=== PATIENT | female | born 2000 | race Caucasian/White ===

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

== ENCOUNTER 2022-01-19 13:07 | Emergency (ER) | payer BC, SELFPAY ==
[2022-01-19 13:11] VITALS: BP 128/65; PULSE 89; RESP 16; TEMP 37.1; O2SAT 99
--- NOTE | 2022-01-19 13:27 | W.ED.GENAD ---
Discharge Plan Disposition Patient Disposition: HOME Condition: Stable Discharge Details Clinical Impression: Hydronephrosis Primary Care Provider: Ariadne Stevenson ED Provider: Matthieu Zuniga Home Meds and New Rx's Prescriptions: New tamsulosin [Flomax] 0.4 mg capsule 0.4 mg PO DAILY Qty: 5 0RF Continued melatonin 3 mg capsule 3 mg PO HS PRN acetylcysteine [NAC] 600 mg capsule 600 mg PO DAILY citalopram 20 mg tablet 20 mg PO DAILY loratadine [Claritin] 10 mg tablet 10 mg PO DAILY PRN Discharge Instructions Instructions: Hydronephrosis (ED) Additional Instructions: Your laboratory values and urinalysis did not reveal any obvious emergent process but your ultrasound reveals a worsening hydronephrosis when compared to your last ultrasound. Flomax as directed. [id number] Tylenol and/or Motrin as directed for discomfort. Plenty of fluids to avoid dehydration. Please watch for new or worsening symptoms and return to the ER for any concerns. Otherwise please contact our urology team, Dr. Olson, or your urology team at [facility] on Saturday to discuss your ER visit, need for outpatient reevaluation, and likely studies sooner than February as already scheduled Referrals: Deangelo Olson MD [ [facility] STAFF PHYSICIAN] - Discharge Data Discharge Date/Time-TO BE ENTERED AT DEPARTURE: 01/19/22 16:33 Medical Decision Making This is a 21-year-old female who reports hematuria and right flank pain intermittent for the last couple of days, more constant since this morning. She reports mild chills but denies fever. Denies nausea, vomiting, vaginal bleeding or discharge. She reports a history of hydronephrosis, concern for right-sided stone, has been followed at [facility] for urology. Scheduled for a renogram in February. Clinically she appears well, nontoxic, afebrile, abdomen, soft, nonsurgical, no CVA tenderness. Plan is to obtain IV access, obtain routine screening laboratory values as well as a urinalysis and ultrasound. Laboratory values reveal large blood in her urine, greater than 50 red cells but no signs of infection. Ultrasound reveals worsening hydronephrosis when compared to previous. Case discussed with Dr. Olson, urology. He recommends treating as presumptive stone, ultrasound may miss a more inferior sitting stone. He believes the patient can be safely discharged however if she continues to have symptoms then she may need further evaluation, CT imaging, stent, etc. Plan is to provide Flomax and Toradol. He will be happy to see her in his office next week and strict precautions were given to return over the weekend. She is undecided whether she will continue to travel to [facility] or she will be seen more closely here, either way will contact urology Saturday after the holiday . Patient given p.o. Flomax and IM Toradol. Did have a brief vasovagal episode with the IM Toradol. Patient reports this is a very common reaction that she has had multiple times in the past with needles. She returned to her baseline mental status, ambulate steadily, tolerated p.o. intake. Stict discharge and return precautions were provided. Patient understands, is agreeable to this plan, and has no additional questions or concerns upon discharge. This documentation was generated using [employer] dictation system, please disregard any oddities of phrase or misspellings. Medical Records Medical records reviewed: Yes I reviewed the patient's medical records. Imaging Data Radiologic Study: Attestation: I personally reviewed and interpreted this imaging study as follows: Imaging: Ultrasound Radiologist's impression: Exam(s) US RENAL EXAM: US RENAL CLINICAL HISTORY: R flank pain, hematuria, hx of stone. TECHNIQUE: Chowdhury scale, color and spectral Doppler were used. COMPARISON: CT CT RENAL COLIC WO from 04/02/2020 US US PELVIS TRANSVAGINAL from 01/11/2021 FINDINGS: Renal size in cm: Right: 12.4 left: 10.8 Echogenicity: Normal Hydronephrosis: Moderate to severe right hydronephrosis which appears increased from the previous exam. Cyst or mass: No Nephrolithiasis: No Bladder:Normal . Right ureteral jet was visualized. Left ureteral jet was not seen. Prevoid vol:29 cc Postvoid vol:0 cc IMPRESSION: Moderate to severe at hydronephrosis which appears have increased when compared with 2019 and 2020 exams. Lab Data Lab results reviewed: Yes I reviewed the patient's lab results. Labs: 01/19/22 13:15 Urine - Reflex from Ua Urine Culture - Pending Laboratory Tests Range/Units 01/19/22 01/19/22 01/19/22 13:15 14:14 14:14 WBC (4.4-10.8) 10^3/uL 8.07 RBC (3.93-5.22) 10^6/uL 4.28 Hgb (11.2-15.7) g/dL 13.7 Hct (36.0-46.0) % 41.9 MCV (80-95) fL 98 H MCH (27.0-33.0) pg 32.0 MCHC (32.0-36.0) % 32.7 RDW (11.7-14.6) % 11.9 Plt Count (130-400) 10^3/uL 183 MPV (8.0-11.0) fL 9.8 Immature Gran % 0.2 Neutrophils % 82.8 Lymphocytes % 9.9 Monocytes % 6.7 Eosinophils % 0.2 Basophils % 0.2 Nucleated RBC % (0.0-0.3) % 0.0 Absolute Neutrophils (1.2-6.7) 10^3/uL 6.67 Absolute Lymphocytes (1.2-3.4) 10^3/uL 0.80 L Absolute Monocytes (0.1-0.8) 10^3/uL 0.54 Absolute Eosinophils (0.0-0.7) 10^3/uL 0.02 Absolute Basophils (0.0-0.2) 10^3/uL 0.02 Sodium (136-145) mmol/L 139 Potassium (3.5-5.1) mmol/L 3.5 Chloride (98-107) mmol/L 103 Carbon Dioxide (21.0-32.0) mmol/L 28.9 Anion Gap (3-11) mmol/L 7.1 BUN (7-18) mg/dL 10 Creatinine (0.55-1.02) mg/dL 0.7 Estimated GFR/1.73 m2 (mL/min/1.73m2) >= 60.00 Glucose (74-106) mg/dL 96 Calcium (8.5-10.1) mg/dL 9.4 Total Bilirubin (0.2-1.0) mg/dL 0.5 AST (15-37) U/L 35 ALT (14-59) U/L 41 Alkaline Phosphatase (46-116) U/L 84 Total Protein (6.4-8.2) g/dL 8.2 Albumin (3.4-5.0) g/dL 4.6 Lipase (73-393) U/L 82 Urine Color (Yellow) Yellow Urine Clarity (Clear) Cloudy Urine pH (5-8) 7.5 Ur Specific [place] (1.005-1.025) 1.025 Urine Protein (Negative) mg/dL 100 H Urine Ketones (Negative) mg/dL Negative Urine Blood (Negative) Large H Urine Nitrite (Negative) Negative Urine Bilirubin (Negative) Negative Urine Urobilinogen (Up TO 0.2) EU/dL 1.0 H Ur Leukocyte Esterase (Negative) Trace H Urine RBC (0-2) HPF >50 H Urine WBC (0-5) HPF 3-5 Ur Epithelial Cells (Negative) HPF Few Urine Crystals (Negative) HPF Negative Urine Bacteria (Negative) HPF Rare Urine Casts (Negative) LPF 3-5 Hyaline Urine Mucus (Negative) Negative Ur Culture Indicated? Yes Urine Glucose (Negative) mg/dL Negative HPI General Mode of arrival: ambulatory. Date/Time Provider Initiated Documentation: 01/19/22 13:08. Limitations to Documentation: no limitations. Information obtained by: patient. History of Present Illness 21 year old F presents to the emergency department with the chief complaint of Hematuria, right flank pain, described as moderate, with intensity rated at 5. Quality is described as aching, and is localized to the abdomen and right. Patient reports no radiation. Patient started experiencing this day(s) (2) and it has been intermittent. No relieving factors improve symptom(s), No exacerbating factors reported . Patient notes no other symptoms.. Patient did receive the following treatments prior to arrival, none Related Data Home Medications Medication Instructions Recorded Confirmed acetylcysteine 600 mg capsule (NAC) 600 mg PO DAILY 09/06/21 10/18/21 loratadine 10 mg tablet (Claritin) 10 mg PO DAILY PRN 09/06/21 10/18/21 melatonin 3 mg capsule 3 mg PO HS PRN 09/06/21 10/18/21 citalopram 20 mg tablet 20 mg PO DAILY 09/27/21 10/18/21 tamsulosin 0.4 mg capsule (Flomax) 0.4 mg PO DAILY #5 caps 01/19/22 Previous Rx's Medication Instructions Recorded tamsulosin 0.4 mg capsule (Flomax) 0.4 mg PO DAILY #5 caps 01/19/22 Allergies Allergy/AdvReac Type Severity Reaction Status Date / Time No Known Allergies Allergy Unverified 10/18/21 10:09 General Stated Complaint: Urinary MIKE: 3 Review of Systems Constitutional Constitutional: Denies fever(s) and Denies weakness Cardiovascular Cardiovascular: Denies chest pain and Denies dyspnea Respiratory Respiratory: Denies cough and Denies dyspnea Gastrointestinal Gastrointestinal: Reports abdominal pain (R flank), Denies diarrhea, Denies nausea and Denies vomiting Genitourinary Genitourinary: Denies abnormal vaginal bleeding, Reports hematuria, Denies dysuria and Denies vaginal discharge Musculoskeletal Musculoskeletal: Denies back pain Integumentary/Breasts Skin/Breast: Denies rash Neurologic Neurologic: Denies weakness Hematologic/Lymphatic Hematologic/Lymphatic: Denies easy bleeding and Denies easy bruising PFSH All Active Problems (Updated 01/19/22 @ 16:03 by CAPO Miller) Hydronephrosis (Acute) Patellar tendinitis of left knee (Acute) Medical History Adjustment disorder with anxious mood Anxiety and depression Congenital hip dysplasia Depression Irregular menstrual cycle IUD (intrauterine device) in place Left knee pain Surgical History History of arthroplasty of left hip Social History Smoking/Tobacco Use Status: Never Smoking risk assessment performed?: Yes Alcohol Intake: never Drug use: Never Substance use type: does not use Current gender identity: female Do you feel safe at home: Yes Do you feel safe in your relationship?: Yes Exam Const General: cooperative, healthy appearing, comfortable and no acute distress Orientation: alert, awake and oriented x3 HENMT Head: normal to inspection, normocephalic and atraumatic Mouth: moist mucous membranes Eyes General: appearance normal, both eyes and all related structures Conjunctivae: conjunctivae normal Neck Neck: normal visual inspection, full ROM, trachea midline and supple Resp Effort & Inspection: normal respiratory effort and able to speak in complete sentences Auscultation: clear to auscultation bilaterally Cardio Rate: regular rate Rhythm: regular rhythm GI Inspection: normal to inspection Palpation: soft, not firm, no guarding, no pulsatile masses and tender (Mild R flank) with no rebound tenderness Auscultation: normal bowel sounds Back/Spine/Pelvis Back: No no CVA tenderness and No back tenderness Skin General skin exam: no rashes or lesions noted Neuro General: patient alert, patient awake, moves all extremities and no focal motor deficits Sensory Exam: no sensory deficits noted Psych Appearance: grossly normal Mental Status: mental status grossly normal Course Vital Signs Vital signs: Vital Signs Temperature 37.1 C 01/19/22 13:11 Pulse 89 01/19/22 13:11 Respiratory Rate 16 01/19/22 13:11 Blood Pressure 128/65 01/19/22 13:11 Pulse Oximetry 99 01/19/22 13:11 Temperature 37.1 C 01/19/22 13:11 Temperature Source Oral 01/19/22 13:11 Pulse 89 01/19/22 13:11 Respiratory Rate 16 01/19/22 13:11 Blood Pressure 128/65 01/19/22 13:11 Blood Pressure Position Sitting 01/19/22 13:11 Pulse Oximetry 99 01/19/22 13:11 Oxygen Delivery Method Room Air 01/19/22 13:11 Oxygen Flow Rate 0 01/19/22 13:11 Pain Level 6 01/19/22 13:11 Lab/Test Results Lab/Test Results: POC- Test(urine) Negative
[2022-01-19 13:28] LABS: Bilirubin Negative (Negative); Blood Large (Negative); Clarity Cloudy (Clear); Glucose Negative (Negative); Ketones Negative (Negative); Leukocyte Esterase Trace (Negative); Nitrite Negative (Negative); Specific Gravity 1.025 (1.005-1.025); pH 7.5 (5-8)
[2022-01-19 13:34] LABS: Bacteria Rare HPF (Negative); C & S Indicated? Yes; Casts 3-5 Hyaline LPF (Negative); Crystals Negative HPF (Negative); Epithelial Cells Few HPF (Negative); Mucus Negative (Negative); RBC >50 HPF (0-2)
--- NOTE | 2022-01-19 13:45 | DI.US_ITS ---
Exam(s) US RENAL EXAM: US RENAL CLINICAL HISTORY: R flank pain, hematuria, hx of stone. TECHNIQUE: Chowdhury scale, color and spectral Doppler were used. COMPARISON: CT CT RENAL COLIC WO from 04/02/2020 US US PELVIS TRANSVAGINAL from 01/11/2021 FINDINGS: Renal size in cm: Right: 12.4 left: 10.8 Echogenicity: Normal Hydronephrosis: Moderate to severe right hydronephrosis which appears increased from the previous exa m. Cyst or mass: No Nephrolithiasis: No Bladder:Normal . Right ureteral jet was visualized. Left ureteral jet was not seen. Prevoid vol:29 cc Postvoid vol:0 cc IMPRESSION: Moderate to severe at hydronephrosis which appears have increased when compared with 2019 and 2020 ex ams. DATA REPOSITORY:
[2022-01-19 14:19] LABS: Abs Immature Grans 0.02 10^3/uL (0.0-0.06); Absolute Basophil Count 0.02 10^3/uL (0.0-0.2); Absolute Eosinophil Count 0.02 10^3/uL (0.0-0.7); Absolute Monocyte Count 0.54 10^3/uL (0.1-0.8); Absolute Neutrophil Count 6.67 10^3/uL (1.2-6.7); Basophils % 0.2; Eosinophils % 0.2; HCT 41.9 % (36.0-46.0); HGB 13.7 g/dL (11.2-15.7); Immature Grans % 0.2; Lymphocytes % 9.9; MCHC 32.7 % (32.0-36.0); MCV 98 fL (80-95); MPV 9.8 fL (8.0-11.0); Monocytes % 6.7; Neutrophils % 82.8; Platelet Count 183 10^3/uL (130-400); RBC 4.28 10^6/uL (3.93-5.22); RDW 11.9 % (11.7-14.6); RDW-SD 42.9 fL; WBC 8.07 10^3/uL (4.4-10.8)
[2022-01-19 14:39] LABS: ALT 41 U/L (14-59); AST 35 U/L (15-37); Albumin 4.6 g/dL (3.4-5.0); Alkaline Phosphatase 84 U/L (46-116); Anion Gap 7.1 mmol/L (3-11); BUN 10 mg/dL (7-18); Bilirubin, Total 0.5 mg/dL (0.2-1.0); CO2 28.9 mmol/L (21.0-32.0); CREATININE 0.7 mg/dL (0.55-1.02); Calcium 9.4 mg/dL (8.5-10.1); Chloride 103 mmol/L (98-107); Glucose 96 mg/dL (74-106); Lipase 82 U/L (73-393); Potassium 3.5 mmol/L (3.5-5.1); Sodium 139 mmol/L (136-145); Total Protein 8.2 g/dL (6.4-8.2)
[2022-01-19] MEDS: Tamsulosin 0.4 MG CAPCR PO (16:30)
[2022-01-19] MEDS: Ketorolac 30 MG/ML VIAL IM (16:30)
== END 2022-01-19 16:33 | disposition home or self-care (01) ==
PROVIDERS: Emergency Provider Physician Assistant; PCP Family Medicine
DX: N13.30 Unspecified hydronephrosis (principal); R10.9 Unspecified abdominal pain; R31.9 Hematuria, unspecified
CPT/HCPCS: 36416; 76770; 80053; 81025; 82962; 83690; 96372; 99284; 81003; 81015; 85025; 87086; J1885

== ENCOUNTER 2022-06-29 15:08 | Outpatient (CLI) | payer BC, SELFPAY ==
[2022-06-29 15:28] LABS: HCT 40.9 % (36.0-46.0); HGB 13.5 g/dL (11.2-15.7); MCH 32.1 pg (27.0-33.0); MCV 97 fL (80-95); MPV 10.5 fL (8.0-11.0); Platelet Count 188 10^3/uL (130-400); RBC 4.21 10^6/uL (3.93-5.22); RDW 11.7 % (11.7-14.6); RDW-SD 42.1 fL; WBC 6.35 10^3/uL (4.4-10.8)
[2022-06-29 16:07] LABS: ALT 20 U/L (14-59); AST 23 U/L (15-37); Albumin 4.5 g/dL (3.4-5.0); Alkaline Phosphatase 62 U/L (46-116); Anion Gap 8.4 mmol/L (3-11); BUN 11 mg/dL (7-18); Bilirubin, Total 0.6 mg/dL (0.2-1.0); CO2 28.6 mmol/L (21.0-32.0); CREATININE 0.8 mg/dL (0.55-1.02); Calcium 9.6 mg/dL (8.5-10.1); Chloride 103 mmol/L (98-107); Estimated GFR 108.11 (mL/min/1.73m2); Glucose 87 mg/dL (74-106); Potassium 3.9 mmol/L (3.5-5.1); Sodium 140 mmol/L (136-145); Total Protein 7.8 g/dL (6.4-8.2)
== END 2022-06-29 15:09 | disposition home or self-care (01) ==
LOC: LBO 15:09
PROVIDERS: PCP Family Medicine; Visit Provider Urology
DX: N13.5 Crossing vessel and stricture of ureter without hydronephrosis (principal); Z01.818 Encounter for other preprocedural examination
CPT/HCPCS: 36415; 80053; 85027; 86900; 86901; 87086

== ENCOUNTER 2022-12-05 13:32 | Emergency (ER) | payer BC, SELFPAY ==
[2022-12-05 13:37] VITALS: BP 114/73; PULSE 97; RESP 16; TEMP 37.1; O2SAT 99
--- NOTE | 2022-12-05 13:45 | DI.US_ITS ---
Exam(s) US RENAL EXAM: US RENAL CLINICAL HISTORY: right flank pain, recent surgery TECHNIQUE: Ultrasound of both kidneys performed using standard protocol. COMPARISON: US US RENAL from 01/19/2022 FINDINGS: RIGHT KIDNEY: Measures 12.4 cm in length. No cysts evident. Normal cortical thickness and corticomedullary differen tiation .No solid masses Presently there is no hydronephrosis on the right side, as was previously present. There is apparent ly been interval UPJ obstruction repair procedure. LEFT KIDNEY: Measures 11.5 cm in length. No cysts evident. Normal cortical thickness and corticomedullary differe ntiaion. No solids masses. No intrarenal calculi nor hydonephrosis. URINARY BLADDER: Volume of fluid in the urinary bladder is only 12.2 cc therefore difficult to assess for masses and t o assess the ureteral jets. A week jet was demonstrated on the left side. No obvious jet demonstrat ed on the right side. No evidence of bladder mass nor diverticuli. IMPRESSION: 1. Previously present right-sided hydronephrosis is no longer seen. There has apparently been inter omkar right UPJ obstruction repair since the most recent ultrasound examination of December 2021. No thinni ng of the cortical mantle in either kidney. No new cysts nor masses in either kidney. No perinephri c fluid. 2. Bladder was difficult to assess because it was almost empty (only 12.2 cc). Therefore it was not possible to adequately evaluate for the presence of a right ureterovesical jet. DATA REPOSITORY:
[2022-12-05 13:53] LABS: Bilirubin Negative (Negative); Blood Trace-lysed (Negative); Clarity Clear (Clear); Glucose Negative (Negative); Ketones Trace mg/dL (Negative); Leukocyte Esterase Trace (Negative); Nitrite Negative (Negative); Specific Gravity 1.015 (1.005-1.025); Urobilinogen 0.2 mg/dL (Up to 0.2); pH 6.5 (5-8)
[2022-12-05 14:03] LABS: Bacteria Rare HPF (Negative); C & S Indicated? No/Sq. Contamination; Casts Negative LPF (Negative); Crystals Negative HPF (Negative); Epithelial Cells Moderate HPF (Negative); Mucus Negative (Negative); RBC 0-2 HPF (0-2); WBC 0-2 HPF (0-5)
[2022-12-05 14:49] LABS: Abs Immature Grans 0.01 10^3/uL (0.0-0.06); Absolute Basophil Count 0.01 10^3/uL (0.0-0.2); Absolute Lymphocyte Count 0.67 10^3/uL (1.2-3.4); Absolute Neutrophil Count 4.82 10^3/uL (1.2-6.7); Basophils % 0.2; HCT 39.5 % (36.0-46.0); HGB 13.4 g/dL (11.2-15.7); Immature Grans % 0.2; Lymphocytes % 10.8; MCH 31.7 pg (27.0-33.0); MCHC 33.9 % (32.0-36.0); MCV 93 fL (80-95); MPV 9.8 fL (8.0-11.0); Monocytes % 11.3; Neutrophils % 77.5; Platelet Count 166 10^3/uL (130-400); RBC 4.23 10^6/uL (3.93-5.22); RDW 12.5 % (11.7-14.6); RDW-SD 43.2 fL; WBC 6.21 10^3/uL (4.4-10.8)
[2022-12-05 15:07] LABS: ALT 20 U/L (14-59); AST 24 U/L (15-37); Albumin 4.2 g/dL (3.4-5.0); Alkaline Phosphatase 75 U/L (46-116); Anion Gap 8.6 mmol/L (3-11); BUN 9 mg/dL (7-18); Bilirubin, Total 0.5 mg/dL (0.2-1.0); CO2 28.4 mmol/L (21.0-32.0); CREATININE 0.8 mg/dL (0.55-1.02); Calcium 9.1 mg/dL (8.5-10.1); Chloride 100 mmol/L (98-107); Estimated GFR 108.11 (mL/min/1.73m2); Glucose 92 mg/dL (74-106); Lipase 17 U/L (16-77); Potassium 3.6 mmol/L (3.5-5.1); Sodium 137 mmol/L (136-145); Total Protein 8.1 g/dL (6.4-8.2)
--- NOTE | 2022-12-05 15:08 | ED.GENADUL_ITS ---
Discharge Plan Disposition Patient Disposition: Home Discharge Details Clinical Impression: Back pain Primary Care Provider: Ariadne Stevenson ED Provider: Carmen Bell Home Meds and New Rx's Prescriptions: Continued melatonin 3 mg capsule 3 mg PO HS PRN acetylcysteine [NAC] 600 mg capsule 600 mg PO DAILY citalopram 20 mg tablet 20 mg PO DAILY loratadine [Claritin] 10 mg tablet 10 mg PO DAILY PRN tamsulosin [Flomax] 0.4 mg capsule 0.4 mg PO DAILY Qty: 5 0RF Discharge Instructions Instructions: Back Pain (ED) Additional Instructions: Take ibuprofen and Tylenol as needed for pain Follow-up with your primary care physician for reassessment in 2 to 3 days Your tests today are reassuring including your renal ultrasound which does not show acute abnormality and your diagnostic blood work encouraging her uri nalysis, no evidence of infection or obstruction Please return earlier should you have fever, chills, worsening pain, or with any new or worsening complaints Referrals: Ariadne Stevenson MD [Primary Care Provider] - 2 days Discharge Data Discharge Date/Time-TO BE ENTERED AT DEPARTURE: 12/05/22 15:23 Medical Decision Making 22-year-old female with history of ureteral surgery several months ago presents with right flank pain, atraumatic Ultrasound renal does not show evidence of acute abnormality per radiology interpretation and my review Urinalysis is clear, negative test, and the remainder of her labs are all within normal limits She is encouraged to follow-up with her primary care physician in 24 to 48 hours for reassessment Return precautions reviewed and patient expressed understanding She will follow-up with primary care physician and her neurologist in the outpatient setting Medical Records Medical records reviewed: Yes I reviewed the patient's medical records. Lab Data Lab results reviewed: Yes I reviewed the patient's lab results. HPI General Date/Time Provider Initiated Documentation: 12/05/22 13:51 . HPI Narrative: This 22-year-old female presents with report of right flank pain. 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 She actually had a repeat assessment on Saturday that this did a CAT scan within normal limits. She has any fever or chills. She states the pain started while she was walking at [place]. She denies known exacerbating or relieving factors. Denies any urinary complaints or chance of . Related Data Home Medications Medication Instructions Recorded Confirmed acetylcysteine 600 mg capsule (NAC) 600 mg PO DAILY 09/06/21 10/18/21 loratadine 10 mg tablet (Claritin) 10 mg PO DAILY PRN 09/06/21 12/05/22 melatonin 3 mg capsule 3 mg PO HS PRN 09/06/21 12/05/22 citalopram 20 mg tablet 20 mg PO DAILY 09/27/21 10/18/21 tamsulosin 0.4 mg capsule (Flomax) 0.4 mg PO DAILY #5 caps 01/19/22 Previous Rx's Medication Instructions Recorded tamsulosin 0.4 mg capsule (Flomax) 0.4 mg PO DAILY #5 caps 01/19/22 Allergies Allergy/AdvReac Type Severity Reaction Status Date / Time No Known Allergies Allergy Unverified 12/05/22 13:41 General Stated Complaint: FlankPain MIKE: 3 PFSH All Active Problems (Updated 12/05/22 @ 15:11 by CAPO Todd) Back pain (Acute) Hydronephrosis (Acute) Patellar tendinitis of left knee (Acute) Medical History Adjustment disorder with anxious mood Anxiety and depression Congenital hip dysplasia Depression Irregular menstrual cycle IUD (intrauterine device) in place Left knee pain Surgical History History of arthroplasty of left hip Social History Smoking/Tobacco Use Status: Never Smoking risk assessment performed?: Yes Alcohol Intake: never Drug use: Never Substance use type: does not use Current gender identity: female Do you feel safe at home: Yes Do you feel safe in your relationship?: Yes Exam Const General: cooperative, comfortable and no acute distress Resp Effort & Inspection: normal respiratory effort Auscultation: clear to auscultation bilaterally Cardio Rate: regular rate Rhythm: regular rhythm GI Inspection: normal to inspection Other: right flank tenderness Skin General skin exam: no rashes or lesions noted Neuro General: patient alert and patient oriented x3 Cognition: normal cognition Course Vital Signs Vital signs: Vital Signs Temperature 37.1 C 12/05/22 13:37 Pulse 97 H 12/05/22 13:37 Respiratory Rate 16 12/05/22 13:37 Blood Pressure 114/73 12/05/22 13:37 Pulse Oximetry 99 12/05/22 13:37 Temperature 37.1 C 12/05/22 13:37 Temperature Source Oral 12/05/22 13:37 Pulse 97 H 12/05/22 13:37 Respiratory Rate 16 12/05/22 13:37 Respiratory Effort Normal 12/05/22 13:40 Blood Pressure 114/73 12/05/22 13:37 Blood Pressure Position Sitting 12/05/22 13:37 Pulse Oximetry 99 12/05/22 13:37 Oxygen Delivery Method Room Air 12/05/22 13:37 Oxygen Flow Rate 0 12/05/22 13:37 Pain Level 4 12/05/22 13:37 Lab/Test Results Lab/Test Results: Laboratory Tests Range/Units 12/05/22 12/05/22 12/05/22 13:43 14:44 14:44 WBC (4.4-10.8) 10^3/uL 6.21 RBC (3.93-5.22) 10^6/uL 4.23 Hgb (11.2-15.7) g/dL 13.4 Hct (36.0-46.0) % 39.5 MCV (80-95) fL 93 MCH (27.0-33.0) pg 31.7 MCHC (32.0-36.0) % 33.9 RDW (11.7-14.6) % 12.5 Plt Count (130-400) 10^3/uL 166 MPV (8.0-11.0) fL 9.8 Immature Gran % 0.2 Neutrophils % 77.5 Lymphocytes % 10.8 Monocytes % 11.3 Eosinophils % 0.0 Basophils % 0.2 Nucleated RBC % (0.0-0.3) % 0.0 Absolute Neutrophils (1.2-6.7) 10^3/uL 4.82 Absolute Lymphocytes (1.2-3.4) 10^3/uL 0.67 L Absolute Monocytes (0.1-0.8) 10^3/uL 0.70 Absolute Eosinophils (0.0-0.7) 10^3/uL 0.00 Absolute Basophils (0.0-0.2) 10^3/uL 0.01 Sodium (136-145) mmol/L 137 Potassium (3.5-5.1) mmol/L 3.6 Chloride (98-107) mmol/L 100 Carbon Dioxide (21.0-32.0) mmol/L 28.4 Anion Gap (3-11) mmol/L 8.6 BUN (7-18) mg/dL 9 Creatinine (0.55-1.02) mg/dL 0.8 Est GFR (CKD-EPI 2020) (mL/min/1.73m2) 108.11 Glucose (74-106) mg/dL 92 Calcium (8.5-10.1) mg/dL 9.1 Total Bilirubin (0.2-1.0) mg/dL 0.5 AST (15-37) U/L 24 ALT (14-59) U/L 20 Alkaline Phosphatase (46-116) U/L 75 Total Protein (6.4-8.2) g/dL 8.1 Albumin (3.4-5.0) g/dL 4.2 Lipase (16-77) U/L 17 Urine Color (Yellow) Yellow Urine Clarity (Clear) Clear Urine pH (5-8) 6.5 Ur Specific [place] (1.005-1.025) 1.015 Urine Protein (Negative) mg/dL Negative Urine Ketones (Negative) mg/dL Trace H Urine Blood (Negative) Trace-lysed H Urine Nitrite (Negative) Negative Urine Bilirubin (Negative) Negative Urine Urobilinogen (Up to 0.2) mg/dL 0.2 Ur Leukocyte Esterase (Negative) Trace H Urine RBC (0-2) HPF 0-2 Urine WBC (0-5) HPF 0-2 Ur Epithelial Cells (Negative) HPF Moderate Urine Crystals (Negative) HPF Negative Urine Bacteria (Negative) HPF Rare Urine Casts (Negative) LPF Negative Urine Mucus (Negative) Negative Ur Culture Indicated? No/Sq. Contamination Urine Glucose (Negative) mg/dL Negative POC- Test(urine) Negative
== END 2022-12-05 15:23 | disposition home or self-care (01) ==
PROVIDERS: Student in an Organized Health Care Education/Training Program; Emergency Provider Physician Assistant; PCP Family Medicine
DX: M54.9 Dorsalgia, unspecified (principal)
CPT/HCPCS: 36415; 76770; 80053; 81025; 83690; 99284; 81003; 81015; 85025; 99283

== ENCOUNTER 2022-12-26 12:25 | Outpatient (CLI) | payer BC, SELFPAY ==
--- NOTE | 2022-12-26 | DI.RAD_ITS ---
Exam(s) XR SHOULDER LT COMPLETE 2+V EXAM: XR SHOULDER LT COMPLETE 2+V CLINICAL HISTORY: Pain. TECHNIQUE: 2D digital imaging was performed of the left shoulder. Four images were obtained. AP, G rashey, and Y views were obtained. COMPARISON: No exams were available for comparison FINDINGS: BONES: No acute fracture is present. No bony destructive lesion is seen. JOINTS: No dislocation present. The joint space is well maintained. SOFT TISSUE: Normal. IMPRESSION: Unremarkable radiographs of the left shoulder. DATA REPOSITORY: RADIATION DOSE DELIVERED:
--- NOTE | 2022-12-26 19:50 | DI.VRAD_ITS ---
PROCEDURE INFORMATION: Exam: XR Left Shoulder Exam date and time: 12/26/2022 7:44 PM Age: 22 years old Clinical indication: Other: Pain TECHNIQUE: Imaging protocol: Radiologic exam of the left shoulder. Views: 2 or more views. COMPARISON: No relevant prior studies available. FINDINGS: Bones/joints: Normal. Soft tissues: Normal. IMPRESSION: No acute findings. Dictated and Authenticated by: Ramsey De La Fuente MD. Ordering:BRI Cole MD
== END 2022-12-26 12:45 ==
LOC: DI 04-23 12:25
PROVIDERS: PCP Family Medicine; Visit Provider Physician Assistant Medical
DX: M25.511 Pain in right shoulder (principal)
CPT/HCPCS: 73030

== ENCOUNTER 2023-01-24 01:59 | Outpatient (CLI) | payer BC, SELFPAY ==
--- NOTE | 2023-01-24 09:55 | DI.MRI_ITS ---
Exam(s) MR UPPER JOINT LT WO EXAM: MR UPPER JOINT LT WO CLINICAL HISTORY: LEFT SHOULDER PAIN,S43.432,SLAP TEAR TECHNIQUE: Multiplanar multisequence MRI of the shoulder was performed. COMPARISON: CR,XR XR SHOULDER LT COMPLETE 2+V from 12/26/2022 FINDINGS: MARROW:There is bone contusion signal in the anterior aspect the humeral head in the lesser tuberosit y and slightly medial to this. There do not appear to be true fracture lines. The overlying subscap ularis appears intact as does the biceps tendon. There is no evidence of Hill-Sachs deformity nor os seous Bankart lesion. ROTATOR CUFF MECHANISM: AC JOINT/ACROMIUM: AC joint appears unremarkable. No significant degenerative changes.. There is no evidence of os acromiale. Supraspinatus: Intact. No evidence of tear nor muscle atrophy. Infraspinatus: Intact. No evidence of tear nor muscle atrophy. Teres Minor: Intact. No evidence of tear nor muscle atrophy. Subscapularis/anterior cuff: Intact. No abnormal signal at the level of the multipennate insertional fibers. No significant tear nor atrophy. BICEPS TENDON: Not displaced from the intertubercular groove. Small amount of fluid in the tendon she ath noted. LABRUM: No abnormal signal in the superior labrum posterior to the biceps insertion. No evidence of S LAP tear. Posterior labrum is intact. Anterior labrum appears intact. Inferior labrum intact. Inferio r glenohumeral ligament appears intact. GLENOHUMERAL JOINT: No joint effusion nor obvious loose intra-articular bodies. No chondral defects. No osteophytes. No degenerative subarticular cysts. No evidence of capsular tear. The inferior gle nohumeral ligament is intact. QUADRILATERAL SPACE: No evidence of mass in the region of the axillary nerve and dorsal circumflex hu meral vessels. Visualized triceps muscle at this level appears unremarkable. IMPRESSION: 1. Main finding here is significant bone contusion in the anterior aspect of the humeral head at and medial to lesser tuberosity, without signal abnormality in the greater tuberosity nor in the posterio r humeral head nor in the humeral neck. No abnormal signal in the osseous glenoid. 2. There is no evidence of tear nor displacement of the immediately overlying subscapularis-anterior rotator cuff nor of the biceps tendon although there does appear to be a small amount of fluid in the biceps tendon mid which may indicate mild tenosynovitis. 3. All muscles of the rotator cuff mechanism are intact with no evidence of tendinitis, tendon tears, nor atrophy. 4. There are no labral tears. DATA REPOSITORY:
== END 2023-01-24 02:19 ==
LOC: DI 02:02
PROVIDERS: PCP Family Medicine; Visit Provider Student in an Organized Health Care Education/Training Program
DX: S43.432A Superior glenoid labrum lesion of left shoulder, initial encounter (principal); S49.92XA Unspecified injury of left shoulder and upper arm, initial encounter; X58.XXXA Exposure to other specified factors, initial encounter
CPT/HCPCS: 73221